=== PATIENT | female | born 2000 | race Two or more races ===

== ENCOUNTER 2020-03-15 00:07 | Emergency (ER) | payer SELFPAY ==
[~2020-03-15] VITALS: Ht 160 cm; Wt 52.1 kg
[2020-03-15 00:12] VITALS: BP 122/76
--- NOTE | 2020-03-15 00:49 | NUR ---
covid swab collected and walked to lab
== END 2020-03-15 01:12 | disposition home or self-care (01) ==
LOC: ED 00:55
DX: U07.1 COVID-19 (principal); R05 Cough; J06.9 Acute upper respiratory infection, unspecified; R11.2 Nausea with vomiting, unspecified; R10.9 Unspecified abdominal pain; R94.31 Abnormal electrocardiogram [ECG] [EKG]
CPT/HCPCS: 36415; 71045; 87635; 93005; 99285